=== PATIENT | female | born 1990 | race Caucasian/White ===

== ENCOUNTER 2023-02-19 13:53 | Emergency (ER) | payer MEDICAID, SELFPAY ==
[2023-02-19] VITALS (31 sets, daily range): BP systolic 129–166; BP diastolic 79–122; PULSE 72–117; RESP 20; TEMP 36.6; O2SAT 86–99; BMI 37.8
--- NOTE | 2023-02-19 14:36 | CRLHL7_ITS ---
For Patients: As a result of the Century Cures Act, medical imaging exams and procedure reports are released immediately into your electronic medical record. You may view this report before your referring provider. If you have questions, please contact your health care provider. INDICATION: Syncope. Seizures. TECHNIQUE: CT of the head without contrast. Coronal and sagittal reformats are included. COMPARISON: None. FINDINGS: 20 x 40 millimeter region of subtle transcortical hypoattenuation within the right superior frontal gyrus. Local mass effect results in sulcal effacement. No hyperdense vessels to suggest intracranial thrombus. No acute intracranial hemorrhage. No mass effect or midline shift. No hydrocephalus or extra-axial collections. No acute osseous abnormalities. Hyperostosis internus. Near-complete opacification of the maxillary sinuses from high-grade mucosal thickening. Paranasal sinuses and mastoid air cells are otherwise clear. Normal soft tissues. IMPRESSION: 1. 40 millimeter region of transcortical hypoattenuation within the right superior frontal gyrus with local mass effect. This could reflect an infarct or mass. Contrast-enhanced brain MRI is recommended for more complete evaluation. Please note that all CT scans at this facility use dose modulation, iterative reconstruction, and/or weight-based dosing when appropriate to reduce radiation dose to as low as reasonably achievable. Dictated by Benji Vasquez MD @ 02/19/2023 4:34:44 PM (Electronically Signed)
--- NOTE | 2023-02-19 14:37 | ED_ITS ---
HPI - General Adult General Date Seen: 02/19/23 Chief complaint: Seizure Stated complaint: Possible seizure Time Seen by Provider: 02/19/23 14:04 History of Present Illness HPI narrative: This is a 32-year-old generally healthy female who presents to the ER today with her for evaluation after a possible seizure event. History is limited because the patient can not recall everything that happened to her and the event was not witnessed by any adult. She has been healthy and well lately other than she has recently had a double ear infection. She is on amoxicillin for that. She has not had any fever, chills, bad headache. No vomiting or diarrhea. She does drink alcohol, typically 1 or 2 glasses of wine a week day, perhaps slightly more on the weekend. She and her do not think that she drinks alcohol to excess. No recent alcohol cessation. No drugs. She is pretty confident she is not . She is on control. She is healthy and normal this morning. Her left home at about 12 30 or 1245. Patient recalls that she was walking in her yd going out to their ice house. She was going to climb up into the ice house to clean it out. She lost her balance when trying to climb up and stumbled forward. She does not think she actually fell or hit her head. She then recalls while trying to catch her balance stumbling that she had an event. It started with pain and stiffness involving her left leg including the thigh and he calf. It was tremoring and stiff. Within 1-2 seconds it spread to the wound the right leg and became bilateral. After that the patient blacked out and does not remember what happened. Her 3-year-old son was with her and he was able to tell the patient's father that she threw up in the grass. Patient is unsure how long she was in the grass. She apparently was confused after. She can recall going into her home and picking up her crying 1-year-old daughter. She says she remembers that she did not really know what to do with her. Shortly thereafter her got home. He noted the patient was confused. She has bite mercer on both sides of her tongue, left more than right. She now has a bad headache. She says both of her legs feel crampy and stiff it if she is getting over a trolley hoarse. No other symptoms. No chest pain. No palpitations. No trouble breathing. No abdominal pain. No fever. No neck stiffness. She is now completely recover back to her baseline. No persistent confusion. Related Data Home Medications Medication Instructions Recorded Confirmed amoxicillin .ROUTE 02/19/23 Allergies Allergy/AdvReac Type Severity Reaction Status Date / Time No Known Drug Allergies Allergy Verified 02/19/23 14:02 [facility] Social History Smoking Status: Current every day smoker What tobacco products do you use: cigarettes Smoking packs per day: 1 Smoking cigarettes per day: 20.0 Years smoked: 20 Smoking pack-years: 20.00 Do you use any of these nicotine containing products: None Second hand tobacco smoke exposure: Yes How often do you have a drink containing alcohol: 2-3 times a week How many standard drinks containing alcohol do you have on a typical day: 1 or 2 How often do you have six or more drinks on one occasion: Weekly AUDIT-C Alcohol total score: 6 Non-prescribed substance use: denies use service: No Exam Narrative: Exam Narrative: Constitutional: Appears well-developed and well-nourished. Alert. Conversant. Non toxic. She gets emotional when discussing the event. She is very polite. HENT: Head: Atraumatic. No depressed skull fracture, Raccoon Eyes, Fall's sign, or hemotympanum. Face normal. Nose: Nose normal. Mouth/Throat: Oral mucosa is clear and moist. She has superficial mucosal bite mercer on the left and right lateral sides of her tongue. No sutures required. no trismus. Pharynx normal. Tonsils symmetric. No tonsillar enlargement, erythema, or exudate. Eyes: Conjunctivae normal. EOM normal. Pupils equal, round, and reactive to light. No scleral icterus. Neck: Normal range of motion. Neck supple. No tracheal deviation present. No posterior midline tenderness. Cardiovascular: Normal rate, regular rhythm. No gallop. No friction rub. No murmur heard. Symmetric radial artery pulses Pulmonary/Chest: Effort normal. No stridor. No respiratory distress. No wheezes. No rales. No rhonchi . No tenderness. Abdominal: Soft. Bowel sounds normal. No distension. No mass. No tenderness. No rebound. No guarding. Musculoskeletal: RUE: Normal range of motion. No tenderness. No deformity LUE: Normal range of motion. No tenderness. No deformity RLE: Normal range of motion. No edema. No tenderness. No deformity LLE: Normal range of motion. No edema. No tenderness. No deformity Lymph: No cervical adenopathy. Neurological: Mental status normal. Attention normal. Alert and oriented x3. GCS 15. Memory normal. Speech fluent. Cognition normal. Cranial Nerves intact II-XII except I did not formally test gag or visual acuity. EOMI. Palate elevates symmetrically and tongue protrudes in the midline. Strength: 5/5 trapezius on the right and left 5/5 deltoid on the right and left 5/5 biceps on the right and left 5/5 triceps on the right and left 5/5 supervisor refractory products on the right and left 5/5 thumb opposition on the right and le ft 5/5 finger abduction on the right and le ft 5/5 hip flexors (L3) on the right and le ft 5/5 quadriceps (L4) on the right and lef t 5/5 tibialis anterior on the right and l eft 5/5 EHL (L5) on the right and left 5/5 gastrocnemius (S1) on the right and left 5/5 hamstring on the right and left Sensation intact to light touch in both upper extremities (C4-T1) Sensation intact to light touch in Both lower extremities (L4-S1). Finger to nose and coordination normal. Gait normal. Skin: Skin is warm and dry. No rash noted. No pallor. Normal capillary refill. Psychiatric: Normal mood. At times is emotional. Very polite. Const: Vital Signs, click to edit/add: Vital Signs - 24 hr 02/19/23 14:03 02/19/23 14:21 02/19/23 14:30 Temperature 98 F Pulse Rate 84 87 Pulse Rate [Pulse Oximeter] 87 Respiratory Rate 20 Blood Pressure Blood Pressure [Ri ght Upper Arm] 144/90 H Pulse Oximetry 98 98 96 Oxygen Delivery Me thod Room Air 02/19/23 14:31 02/19/23 14:45 02/19/23 15:00 Temperature Pulse Rate 86 90 84 Pulse Rate [Pulse Oximeter] Respiratory Rate Blood Pressure 130/97 H Blood Pressure [Ri ght Upper Arm] Pulse Oximetry 98 99 96 Oxygen Delivery Me thod 02/19/23 15:01 02/19/23 15:15 02/19/23 15:30 Temperature Pulse Rate 87 117 H 78 Pulse Rate [Pulse Oximeter] Respiratory Rate Blood Pressure 134/98 H Blood Pressure [Ri ght Upper Arm] Pulse Oximetry 97 99 95 Oxygen Delivery Me thod 02/19/23 15:31 02/19/23 15:47 02/19/23 16:03 Temperature Pulse Rate 85 79 79 Pulse Rate [Pulse Oximeter] Respiratory Rate Blood Pressure 136/94 H Blood Pressure [Ri ght Upper Arm] Pulse Oximetry 98 97 98 Oxygen Delivery Me thod 02/19/23 16:04 02/19/23 16:15 02/19/23 16:30 Temperature Pulse Rate 82 72 77 Pulse Rate [Pulse Oximeter] Respiratory Rate Blood Pressure 130/81 Blood Pressure [Ri ght Upper Arm] Pulse Oximetry 96 96 97 Oxygen Delivery Me thod 02/19/23 16:32 02/19/23 16:32 02/19/23 16:45 Temperature Pulse Rate 79 82 79 Pulse Rate [Pulse Oximeter] Respiratory Rate Blood Pressure 136/94 H Blood Pressure [Ri ght Upper Arm] Pulse Oximetry 98 98 97 Oxygen Delivery Me thod 02/19/23 17:01 02/19/23 17:01 02/19/23 17:16 Temperature Pulse Rate 85 75 75 Pulse Rate [Pulse Oximeter] Respiratory Rate Blood Pressure 166/120 H Blood Pressure [Ri ght Upper Arm] Pulse Oximetry 97 99 97 Oxygen Delivery Me thod 02/19/23 17:30 02/19/23 17:32 02/19/23 17:33 Temperature Pulse Rate 76 77 77 Pulse Rate [Pulse Oximeter] Respiratory Rate Blood Pressure 129/79 Blood Pressure [Ri ght Upper Arm] Pulse Oximetry 98 98 97 Oxygen Delivery Me thod 02/19/23 17:45 02/19/23 18:00 02/19/23 18:02 Temperature Pulse Rate 78 78 Pulse Rate [Pulse Oximeter] Respiratory Rate Blood Pressure 129/95 H Blood Pressure [Ri ght Upper Arm] Pulse Oximetry 86 L 98 97 Oxygen Delivery Me thod 02/19/23 18:16 02/19/23 18:30 02/19/23 18:32 Temperature Pulse Rate 84 87 84 Pulse Rate [Pulse Oximeter] Respiratory Rate Blood Pressure 132/122 H Blood Pressure [Ri ght Upper Arm] Pulse Oximetry 97 95 98 Oxygen Delivery Me thod 02/19/23 18:43 02/19/23 18:45 02/19/23 19:00 Temperature Pulse Rate 84 82 84 Pulse Rate [Pulse Oximeter] Respiratory Rate Blood Pressure 145/98 H Blood Pressure [Ri ght Upper Arm] Pulse Oximetry 98 98 98 Oxygen Delivery Me thod Course Consultations Consultation #1: Discussed with Neurology, Dr. Olivares, from [facility]. He would advise outpatient follow-up with neurology clinic. Seizure precautions, no driving, until Neurology follow-up. With a single episode, full return to baseline, no need to start anti epileptics at this time. Consultation #2: Recheck-we received a phone call from consulting radiology to follow-up on the CT imaging result. Result actually shows a 40 mm hypoattenuation in the right frontal lobe, suspicious for possible mass or recent infarct. This abnormality could have been a nidus for seizure activity. She will need an MRI to further characterize. We put out a 2nd consult to Neurology from [facility]. We received a call back from Neurology Dr. Rizzo Vital Signs Vital signs: Initial Vital Signs Temperature 98 F 02/19/23 14:03 Temperature Source Temporal Artery Scan 02/19/23 14:03 Pulse Rate 87 02/19/23 14:03 Pulse Rhythm Regular 02/19/23 14:03 Respiratory Rate 20 02/19/23 14:03 Blood Pressure 144/90 H 02/19/23 14:03 Blood Pressure Mean 108 H 02/19/23 14:03 Blood Pressure Position Supine 02/19/23 14:03 Pulse Oximetry 98 02/19/23 14:03 Oxygen Delivery Method Room Air 02/19/23 14:03 Vital Signs Temperature 98 F 02/19/23 14:03 Pulse Rate 87 02/19/23 14:03 Respiratory Rate 20 02/19/23 14:03 Blood Pressure 144/90 H 02/19/23 14:03 Pulse Oximetry 98 02/19/23 14:03 Oxygen Delivery Method Room Air 02/19/23 14:03 Temperature 98 F 02/19/23 14:03 Pulse Rate 84 02/19/23 19:00 Respiratory Rate 20 02/19/23 14:03 Blood Pressure 145/98 H 02/19/23 18:43 Pulse Oximetry 98 02/19/23 19:00 Oxygen Delivery Method Room Air 02/19/23 14:03 Medications Administered Medications: Generic Name Dose Route Start Last Admin Trade Name Delphine PRN Reason Stop Dose Admin Levetiracetam 2,000 mg/ Sodium 120 mls @ 480 mls/hr 02/19/23 17:14 02/19/23 17:50 Chloride IVPB 02/19/23 17:15 Infused ONCE ONE Infusion Medical Decision Making MDM Narrative Medical decision making narrative: 32-year-old female presenting to the ER today with her for evaluation after she had unwitnessed thinnest event. Based on HPI were suspicious that this may have been a seizure. It started with some unusual stiffening or possible seizure activity involving her left leg, then spread to her right leg, and then blacked out. After she woke up it sounds like she was confused and possibly postictal. She did bite both sides of her tongue. She was not incontinent. She has no previous history of seizure disorder. By history we do not have any suspicion for possible substance abuse, alcohol intoxication or withdrawal,. Laboratory workup shows no evidence for hyponatremia, calcium disorder, hypoglycemia. She is not . No evidence for eclampsia. She does have a headache that came on after the seizure. However no neck stiffness or fever to suggest meningitis or encephalitis. Brain CT scan shows a 4 cm area in the right frontal lobe that is suspicious for possible tumor, infarct, or other abnormality. It is possible that this lesion was a nidus of seizure activity. She will need further workup for the abnormality noted on CT scan. Discussed with neurology from [facility]. Based on the abnormal CT, they agree with the plan to get her transferred to [place] for further workup with MRI with and without contrast, and consultation with Neurosurgery if needed for biopsy if concern for malignancy OR ID if this turns out to be infectious. We will start her on seizure medications, Keppra 20 mg/kg load IV here in the ER. Discussed the findings of the CT with the patient and her . Discussed that this time we do not know the cause of the abnormality on the CT scan. Patient is understandably worried and upset that she might have brain cancer. They verbalized their agreement with the plan to transfer to [place] for further workup. Patient was accepted at [facility] by hospitalist, Dr. Zamroa. There was a delay in getting a bed assignment from [place] due to their current capacity problems. We did receive a bed assignment by approximately 6:50 p.m.. Discussed transfer the patient and her boyfriend. They strongly prefer to transfer by private car because they were worried EMS transport would not be covered by their insurance. We discussed the risks of private car transfer, specifically the risk that she might have another seizure in on monitored setting in the car. They understand that there is a risk for seizure and that if it occurs they will loin puller and call 911 immediately. I do think the patient and her boyfriend understand the medical diagnosis in question hear and understand the risk of seizure. She has now been loaded with Keppra which hopefully would protect her. I do think they have medical decision-making capacity. Therefore we will allow them to transfer by private car. Lab Data Labs: Lab Results 02/19/23 02/19/23 Range/Units 14:42 Unknown WBC 9.27 (4.50-11.00) K/uL RBC 5.01 (4.00-5.20) m/uL Hgb 13.4 (12.0-16.0) gm/dL Hct 40.7 (33.0-51.0) % MCV 81 (80-100) fL MCH 27 (26-34) pg MCHC 33 (32-36) gm/dL RDW Coeff of Emily 13.0 (11.5-15.5) % Plt Count 214 (140-440) K/uL Neut % (Auto) 78.1 H (42.0-72.0) % Lymph % (Auto) 14.2 L (20-44) % Jefferson % (Auto) 6.6 (0.0-11.0) % Eos % (Auto) 0.6 (0.0-7.0) % Baso % (Auto) 0.3 (0.0-3.0) % Neut # (Auto) 7.20 H (1.7-7.0) K/uL Lymph # (Auto) 1.30 (0.90-2.90) K/uL Jefferson # (Auto) 0.60 (0.00-0.90) K/UL Eos # (Auto) 0.06 (0.00-0.50) K/uL Baso # (Auto) 0.03 (0.00-0.30) K/uL Abs Immat Gran (auto) 0.02 (0.00-0.30) K/uL Imm/Tot Granulo (auto) 0.2 % Sodium 139 (135-149) mmol/L Potassium 3.9 (3.6-5.1) mmol/L Chloride 108 (96-114) mmol/L Carbon Dioxide 23 (20-32) mmol/L Anion Gap 8 (7-15) mEq/L BUN 17 (5-24) mg/dL Creatinine 0.6 (0.5-1.5) mg/dL Estimated Creat Clear 114.09 Estimated GFR 121 ml/min Glucose 152 H (60-115) mg/dL Calcium 9.1 (8.4-10.6) mg/dL Total Bilirubin 0.2 (0.1-1.5) mg/dL AST 21 (12-35) U/L ALT 18 (4-35) U/L Alkaline Phosphatase 49 (40-150) U/L Total Protein 7.2 (6.0-8.3) g/dL Albumin 4.1 (3.3-5.0) g/dL Urine Color Yellow (Yellow) Urine Appearance Clear (Clear) Urine pH 6.0 (5.0-8.5) Ur Specific [place] >= 1.030 (1.000-1.030) Urine Protein 1+ A (Negative) Urine Glucose (UA) Negative (Negative) Urine Ketones Negative (Negative) Urine Blood 2+ A (Negative) Urine Nitrite Negative (Negative) Urine Bilirubin Negative (Negative) Urine Urobilinogen 0.2 (0.2-1.0) Ur Leukocyte Esterase Negative (Negative) Urine RBC 2-5 A (0-2) Urine WBC 0-2 (0-5) Urine WBC Clumps None (None) Ur Squamous Epith Cells Moderate A (None-Few) Urine Bacteria Moderate A (None) Urine HCG, Qual Negative (Negative) Ethyl Alcohol < 0.01 L (0.01-0.03) % Imaging Data CT scan - head: Attestation: I have reviewed the pertinent imaging results. Radiologist's impression: IMPRESSION: 1. 40 millimeter region of transcortical hypoattenuation within the right superior frontal gyrus with local mass effect. This could reflect an infarct or mass. Contrast-enhanced brain MRI is recommended for more complete evaluation. ECG Data Attestation: I personally reviewed and interpreted this ECG as follows: Interpretation: Normal sinus rhythm . Rate 83 DC 180s QRS axis normal axis. No pathologic Q-waves. ST segment/T wave: No ST segment elevation or depression. QTc: 427 Discharge Plan Discharge Clinical Impression: Abnormal computed tomography of head, Seizure Patient Disposition: Xfer [facility] Condition: Guarded Additional Instructions: Please go directly to the hospital at [facility] in [place]. Since it is after dark you may have to check an through the ER. Tell them that you are to be ?directed admitted? to the hospital at that you do not need to be seen in the ER as emergency room patient. If you have another seizure while you are traveling to [facility], loin puller and call 911. Prescriptions: No Action amoxicillin .ROUTE Stand Alone Forms: [employer] Info Instructions
[2023-02-19 15:01] LABS: Hemoglobin* 13.4 gm/dL (12.0-16.0); Red Blood Count 5.01 m/uL (4.00-5.20); White Blood Count* 9.27 K/uL (4.50-11.00)
[2023-02-19 15:02] LABS: Basophils Percent Auto 0.3 % (0.0-3.0); Eosinophils Percent Auto 0.6 % (0.0-7.0); Hematocrit 40.7 % (33.0-51.0); Immature Granulocytes Pct Auto 0.2 %; Mean Corpuscular HGB Conc 33 gm/dL (32-36); Mean Corpuscular Hemoglobin 27 pg (26-34); Mean Corpuscular Volume 81 fL (80-100); Monocytes Percent Auto 6.6 % (0.0-11.0); Platelet Count* 214 K/uL (140-440); Slide Review Reflex No
[2023-02-19 15:09] LABS: Albumin* 4.1 g/dL (3.3-5.0); Chloride* 108 mmol/L (96-114); Potassium* 3.9 mmol/L (3.6-5.1); Sodium* 139 mmol/L (135-149)
[2023-02-19 15:11] LABS: Creatinine* 0.6 mg/dL (0.5-1.5); Est. Creatinine Clearance* 114.09; Estimated Glomerular Filt Rate 121 ml/min
[2023-02-19 15:12] LABS: Alanine Aminotransferase* 18 U/L (4-35); Alkaline Phosphatase* 49 U/L (40-150); Anion Gap 8 mEq/L (7-15); Aspartate Amino Transferase* 21 U/L (12-35); Bilirubin Total* 0.2 mg/dL (0.1-1.5); Blood Urea Nitrogen* 17 mg/dL (5-24); Calcium* 9.1 mg/dL (8.4-10.6); Carbon Dioxide* 23 mmol/L (20-32); Glucose* 152 mg/dL (60-115); Total Protein* 7.2 g/dL (6.0-8.3)
[2023-02-19 15:16] LABS: Ethanol* < 0.01 % (0.01-0.03)
[2023-02-19 15:49] LABS: Appearance Urine Clear (Clear); Bilirubin Urine Negative (Negative); Blood Urine 2+ (Negative); Color Urine Yellow (Yellow); Glucose Urine Negative (Negative); Ketones Urine Negative (Negative); Leukocyte Esterase Urine Negative (Negative); Nitrite Urine Negative (Negative); Protein Urine 1+ (Negative); Specific Gravity Urine >= 1.030 (1.000-1.030); Urobilinogen Urine 0.2 (0.2-1.0)
[2023-02-19 15:53] LABS: Ur HCG Qualitative* Negative (Negative)
[2023-02-19 16:31] LABS: WBC Urine 0-2 (0-5)
[2023-02-19 16:33] LABS: Bacteria Urine Moderate; Squamous Epithelial Cell Urine Moderate (None-Few)
[2023-02-19 17:45] LABS: Basophils Absolute Auto 0.03 K/uL (0.00-0.30); Eosinophils Absolute Auto 0.06 K/uL (0.00-0.50); Immature Granulocytes Abs Auto 0.02 K/uL (0.00-0.30); Lymphocytes Percent Auto 14.2 % (20-44); Neutrophils Percent Auto 78.1 % (42.0-72.0)
--- NOTE | 2023-02-19 18:40 | ED.NURSE ---
report was given to Annelise goodrich at [facility]. will go to [id number].
--- NOTE | 2023-02-19 19:17 | ED.NURSE ---
per dr gordon transferred to [facility] via private car. had dc instructions to go directly to ed and tell them to be directly admitted [id number].
== END 2023-02-19 19:16 | disposition short-term general hospital (02) ==
PROVIDERS: Emergency Provider Emergency Medicine
DX: R56.9 Unspecified convulsions (principal); R93.89 Abnormal findings on diagnostic imaging of other specified body structures
CPT/HCPCS: 36415; 70450; 80053; 81001; 81025; 82077; 85025; 87086; 93005; 96365; 99285; J1953

== ENCOUNTER 2023-08-22 12:33 | Outpatient (REF) | payer MEDICAID, SELFPAY ==
[2023-08-22 12:55] LABS: Basophils Absolute Auto 0.02 K/uL (0.00-0.30); Basophils Percent Auto 0.4 % (0.0-3.0); Eosinophils Absolute Auto 0.11 K/uL (0.00-0.50); Hematocrit 41.9 % (33.0-51.0); Hemoglobin* 13.9 gm/dL (12.0-16.0); Lymphocytes Absolute Auto 1.43 K/uL (0.90-2.90); Lymphocytes Percent Auto 26.4 % (20-44); Mean Corpuscular HGB Conc 33 gm/dL (32-36); Mean Corpuscular Hemoglobin 27 pg (26-34); Mean Corpuscular Volume 82 fL (80-100); Monocytes Percent Auto 6.3 % (0.0-11.0); Neutrophils Absolute Auto 3.51 K/uL (1.7-7.0); Neutrophils Percent Auto 64.9 % (42.0-72.0); Platelet Count* 194 K/uL (140-440); RDW Coefficient of Variation % 13.4 % (11.5-15.5); Red Blood Count 5.12 m/uL (4.00-5.20); White Blood Count* 5.41 K/uL (4.50-11.00)
[2023-08-22 12:56] LABS: Slide Review Reflex No
== END 2023-08-22 12:34 | disposition home or self-care (01) ==
LOC: NPINS 12:33
PROVIDERS: Visit Provider Psychiatry & Neurology Neurology
DX: C71.9 Malignant neoplasm of brain, unspecified (principal)
CPT/HCPCS: 85025

== ENCOUNTER 2023-09-25 11:00 | Outpatient (CLI) | payer MEDICAID, SELFPAY ==
[2023-09-25 11:20] LABS: Basophils Absolute Auto 0.01 K/uL (0.00-0.30); Basophils Percent Auto 0.2 % (0.0-3.0); Eosinophils Absolute Auto 0.16 K/uL (0.00-0.50); Eosinophils Percent Auto 3.3 % (0.0-7.0); Hematocrit 39.9 % (33.0-51.0); Lymphocytes Absolute Auto 1.51 K/uL (0.90-2.90); Lymphocytes Percent Auto 30.9 % (20-44); Mean Corpuscular HGB Conc 33 gm/dL (32-36); Mean Corpuscular Hemoglobin 27 pg (26-34); Mean Corpuscular Volume 83 fL (80-100); Monocytes Percent Auto 7.2 % (0.0-11.0); Neutrophils Absolute Auto 2.86 K/uL (1.7-7.0); Neutrophils Percent Auto 58.4 % (42.0-72.0); Platelet Count* 185 K/uL (140-440); RDW Coefficient of Variation % 13.3 % (11.5-15.5); White Blood Count* 4.89 K/uL (4.50-11.00)
[2023-09-25 11:29] LABS: Slide Review Reflex No
== END 2023-09-25 11:01 | disposition home or self-care (01) ==
PROVIDERS: PCP General Practice; Visit Provider Psychiatry & Neurology Neurology
DX: C71.9 Malignant neoplasm of brain, unspecified (principal)
CPT/HCPCS: 36415; 85025

== ENCOUNTER 2023-10-23 10:53 | Outpatient (CLI) | payer MEDICAID, SELFPAY ==
[2023-10-23 11:14] LABS: Basophils Absolute Auto 0.02 K/uL (0.00-0.30); Basophils Percent Auto 0.3 % (0.0-3.0); Eosinophils Absolute Auto 0.12 K/uL (0.00-0.50); Hematocrit 43.3 % (33.0-51.0); Immature Granulocytes Abs Auto 0.04 K/uL (0.00-0.30); Immature Granulocytes Pct Auto 0.7 %; Lymphocytes Absolute Auto 1.69 K/uL (0.90-2.90); Lymphocytes Percent Auto 28.6 % (20-44); Mean Corpuscular HGB Conc 32 gm/dL (32-36); Mean Corpuscular Hemoglobin 27 pg (26-34); Mean Corpuscular Volume 84 fL (80-100); Monocytes Percent Auto 5.8 % (0.0-11.0); Neutrophils Absolute Auto 3.69 K/uL (1.7-7.0); Neutrophils Percent Auto 62.6 % (42.0-72.0); Platelet Count* 202 K/uL (140-440); RDW Coefficient of Variation % 13.3 % (11.5-15.5); Red Blood Count 5.13 m/uL (4.00-5.20)
[2023-10-23 11:17] LABS: Slide Review Reflex No
== END 2023-10-23 10:54 | disposition home or self-care (01) ==
PROVIDERS: PCP General Practice; Visit Provider Psychiatry & Neurology Neurology
DX: C71.9 Malignant neoplasm of brain, unspecified (principal)
CPT/HCPCS: 36415; 85025

== ENCOUNTER 2024-11-21 10:09 | Outpatient (CLI) | payer MEDICAID, SELFPAY ==
[2024-11-23 06:23] LABS: HPV Source Cervix
[2024-11-28 11:13] LABS: Pap Test Digital Imaging Done
== END 2024-11-21 10:10 | disposition home or self-care (01) ==
PROVIDERS: PCP General Practice; Visit Provider Physician Assistant
DX: Z13.6 Encounter for screening for cardiovascular disorders (principal); Z13.1 Encounter for screening for diabetes mellitus; Z13.29 Encounter for screening for other suspected endocrine disorder; Z11.51 Encounter for screening for human papillomavirus (HPV); Z12.4 Encounter for screening for malignant neoplasm of cervix
CPT/HCPCS: 80061; 82947; 84443; 87624; 87625; 88141; 88142; 88175